=== PATIENT | female | born 1990 | race Caucasian/White ===

== ENCOUNTER 2017-06-11 08:28 | Emergency (ER) | END 2017-06-11 10:19 | disposition home or self-care (01) ==

== ENCOUNTER 2017-09-07 19:10 | Outpatient (CLI) | END 2017-09-07 22:36 | disposition home or self-care (01) ==

== ENCOUNTER 2017-09-08 11:41 | Inpatient (IN) | END 2017-09-11 15:24 | disposition home or self-care (01) | DRG 766 ==